=== PATIENT | female | born 1995 | race Caucasian/White ===

== ENCOUNTER → 2019-03-07 01:00 | Observation (INO) ==
[2019-03-06 23:26] LABS: Bilirubin,Urine Negative (Negative); Blood,Urine Negative (Negative); Clarity,Urine Cloudy (Clear); Color,Urine Yellow (Yellow); Glucose,Urine (UA) Normal (Normal); Ketones,Urine Negative (Negative); Leukocyte Esterase,Urine Trace (Negative); Nitrite,Urine Negative (Negative); PH,Urine 7.5 pH Units (5.0-8.0); Protein,Urine Negative (Neg-Trace); Specific Gravity,Urine 1.011 (1.010-1.025); Urobilinogen,Urine Normal (Normal)
[2019-03-06 23:37] LABS: Amphetamine Screen,Urine Negative ng/mL (Cutoff=1000); Barbiturate Screen,Urine Negative ng/mL (Cutoff=200); Benzodiazepines Screen,Urine Negative ng/mL (Cutoff=200); Cannabinoid Screen,Urine Negative ng/mL (Cutoff = 50); Cocaine Screen,Urine Negative ng/mL (Cutoff= 300); Opiate Screen,Urine Negative ng/mL (Cutoff=300); Phencyclidine Screen,Urine Negative ng/mL (Cutoff=25)
[2019-03-06 23:44] LABS: Bacteria,Urine Few per hpf (None-Few); WBC,Urine 0-3 per hpf (0-3)
== END | disposition home or self-care (01) ==
LOC: 1NENULAB
PROVIDERS: ADMIT Advanced Practice Midwife; ATTEND Advanced Practice Midwife

== ENCOUNTER 2019-03-19 14:37 | Observation (INO) | END 2019-03-19 18:17 | disposition home or self-care (01) | LOC: 1NENULAB | PROVIDERS: ADMIT Advanced Practice Midwife; ATTEND Advanced Practice Midwife ==

== ENCOUNTER 2019-03-23 23:32 | Observation (INO) ==
[2019-03-24 00:09] LABS: Amphetamine Screen,Urine Negative ng/mL (Cutoff=1000); Barbiturate Screen,Urine Negative ng/mL (Cutoff=200); Benzodiazepines Screen,Urine Negative ng/mL (Cutoff=200); Cannabinoid Screen,Urine Negative ng/mL (Cutoff = 50); Cocaine Screen,Urine Negative ng/mL (Cutoff= 300); Opiate Screen,Urine Negative ng/mL (Cutoff=300); Phencyclidine Screen,Urine Negative ng/mL (Cutoff=25)
== END 2019-03-24 00:55 | disposition home or self-care (01) ==
LOC: 1NENULAB
PROVIDERS: ADMIT Registered Nurse; ATTEND Registered Nurse

== ENCOUNTER 2019-04-02 06:00 | Inpatient (IN) ==
[2019-04-02] MEDS ORDERED: Lidocaine 1% 20 ML MDV INFILT PRN (06:15)
[2019-04-02] MEDS ORDERED: Oxytocin 20 units/ LR 1000 mL 20 UNIT/1,000 ML BAG IVC SCH ×2 (06:15→21:17)
[2019-04-02] MEDS ORDERED: Ondansetron 4 MG/2 ML VIAL IVP PRN (06:15)
[2019-04-02] MEDS ORDERED: Metoclopramide 10 MG/2 ML VIAL IVP PRN (06:15)
[2019-04-02] MEDS ORDERED: Naloxone 0.4 MG/ML INJ IVP PRN (06:15)
[2019-04-02] MEDS ORDERED: Famotidine 20 MG/2 ML VIAL IVP PRN (06:15)
[2019-04-02] MEDS ORDERED: Epidural Premix (fent/bupiv) 110 ML EP SCH (06:30)
[2019-04-02] MEDS: Ringers Solution, Lactated 1,000 ML IVC SCH ×2 (06:48→13:44)
[2019-04-02 06:52] LABS: Basophils % 0.3 %; Eosinophils # 0.1 K/mcL (0.0-0.6); Eosinophils % 1.2 %; Hematocrit 27.9 % (35.3-44.9); Hemoglobin 9.4 g/dL (11.5-15.4); Immature Granulocytes % 0.6 % (0-4); Mean Corpuscular HGB Conc 33.7 g/dL (31.6-35.5); Mean Corpuscular Hemoglobin 30.4 pg (28.0-33.3); Mean Corpuscular Volume 90.3 fL (83.0-100.0); Mean Platelet Volume 10.1 fL (9.4-12.4); Monocytes # 0.5 K/mcL (0.0-1.3); Monocytes % 5.5 %; Platelet Count 272 K/mcL (140-400); Red Blood Count 3.09 M/mcL (3.82-4.97); Red Cell Distribution Width 13.4 % (11.5-14.5); Segmented Neutrophils % 61.4 %; White Blood Count 9.7 K/mcL (4.3-11.1)
[2019-04-02 09:42] LABS: Amphetamine Screen,Urine Negative ng/mL (Cutoff=1000); Barbiturate Screen,Urine Negative ng/mL (Cutoff=200); Benzodiazepines Screen,Urine Negative ng/mL (Cutoff=200); Cannabinoid Screen,Urine Negative ng/mL (Cutoff = 50); Cocaine Screen,Urine Negative ng/mL (Cutoff= 300); Opiate Screen,Urine Negative ng/mL (Cutoff=300); Phencyclidine Screen,Urine Negative ng/mL (Cutoff=25)
[2019-04-02] MEDS ORDERED: *HR* FentaNYL (PF) 100 MCG/2 ML VIAL EP ONE (09:47)
[2019-04-02] MEDS ORDERED: Ropivacaine/PF 0.2% 20 ML VIAL EP ONE (09:47)
[2019-04-02] MEDS: *HR* Nalbuphine 10 MG/ML AMPUL IVP PRN ×2 (10:55→13:44)
[2019-04-02] MEDS ORDERED: *HR* FentaNYL (PF) 100 MCG/2 ML VIAL ONE (12:49)
[2019-04-02] MEDS ORDERED: Ropivacaine/PF 0.2% 20 ML VIAL ONE ×2 (13:23→16:23)
[2019-04-02] MEDS ORDERED: 0.9 % Sodium Chloride 1,000 ML ONE (13:58)
[2019-04-02] MEDS ORDERED: *HR* Nalbuphine 10 MG/ML AMPUL IV ONE (18:20)
[2019-04-02] MEDS ORDERED: Doxycycline 100 MG CAPSULE PO SCH (21:00)
[2019-04-02] MEDS ORDERED: Ibuprofen 600 MG TABLET PO PRN (21:17)
[2019-04-02] MEDS ORDERED: Measles/Mumps/Rubella Vacc 0.5 ML VIAL SQ PRN (21:17)
[2019-04-02] MEDS: Acetaminophen 325 MG TABLET PO PRN (23:46)
[2019-04-03 07:34] VITALS: BP 110/63
[2019-04-03 07:38] LABS: Basophils % 0.3 %; Eosinophils # 0.1 K/mcL (0.0-0.6); Eosinophils % 1.2 %; Hematocrit 22.9 % (35.3-44.9); Immature Granulocytes % 0.4 % (0-4); Lymphocytes # 2.9 K/mcL (0.6-4.6); Mean Corpuscular HGB Conc 33.6 g/dL (31.6-35.5); Mean Corpuscular Hemoglobin 30.4 pg (28.0-33.3); Mean Corpuscular Volume 90.5 fL (83.0-100.0); Mean Platelet Volume 10.5 fL (9.4-12.4); Monocytes # 0.7 K/mcL (0.0-1.3); Monocytes % 6.5 %; Neutrophils # 6.2 K/mcL (1.6-8.9); Platelet Count 229 K/mcL (140-400); Red Blood Count 2.53 M/mcL (3.82-4.97); Red Cell Distribution Width 13.2 % (11.5-14.5); Segmented Neutrophils % 62.6 %; White Blood Count 9.9 K/mcL (4.3-11.1)
[2019-04-03 08:20] LABS: Hemoglobin 7.7 g/dL (11.5-15.4)
[2019-04-03] MEDS: Acetaminophen 325 MG TABLET PO PRN (08:55)
[2019-04-03] MEDS ORDERED: Prenatal Vit/FA 1 EACH TABLET PO SCH (09:00)
== END 2019-04-03 11:25 | disposition home or self-care (01) | DRG 560 ==
LOC: 1NENULAB 06:14 → 1NENUOBS 21:10
PROVIDERS: ADMIT Obstetrics & Gynecology; ATTEND Obstetrics & Gynecology